=== PATIENT | male | born 1950 | race African-American/Black ===

== ENCOUNTER → 2016-10-10 | Outpatient (CLI) | payer MEDICARE, OTHER ==
[~2016-10-10] MED LIST: ALLEGRA PO; AMLODIPINE BES2.5 MG PO; EXCEDRIN MIGRAI1 TA2 PO; INDERAL LA160 MG PO; NEXIUM PO; PATANASE30.5 GM; QNASL8.7 GM; TIZANIDINE HCL6 MG PO
[2016-10-13 15:51] LABS: CALCIUM (PTHINTACT) 9.6 mg/dL (8.6-10.3)
== END | disposition home or self-care (01) ==
LOC: SLAB 07:49
PROVIDERS: Specialist
DX: D35.1 Benign neoplasm of parathyroid gland (principal); E55.9 Vitamin D deficiency, unspecified
CPT/HCPCS: 36415; 82306; 82310; 83970

== ENCOUNTER → 2016-10-10 | Outpatient (CLI) | payer MEDICARE, OTHER ==
[2016-10-10 08:39] LABS: BASOPHIL% 0.6 % (0-2.5); DIFF IND NO; EOSINOPHIL# 0.3 X10e3 (0-0.7); HEMATOCRIT 41.2 % (38.0-50.0); LYMPHOCYTE# 1.9 X10e3 (1.0-3.5); LYMPHOCYTE% 36.7 % (17.0-45.0); MEAN CELL VOLUME 88.8 FL (83-96); MEAN CORPUSCULAR HGB CONC 31.6 g/dL (30-36); MEAN PLATELET VOLUME 9.8 FL (6.5-11.5); MONOCYTE# 0.5 X10e3 (0-1.0); NEUTROPHIL# 2.5 X10e3 (1.5-7.1); NEUTROPHIL% 47.7 % (40-75); PLATELET COUNT 193 X10e3 (140-420); RED BLOOD COUNT 4.64 X10e (3.90-5.60); RED CELL DISTRIBUTION WIDTH 13.7 % (11.0-15.5); WHITE BLOOD COUNT 5.3 X10e3 (4.0-10.5)
[2016-10-13 07:24] LABS: IMMUNOGLOBULIN A 157 mg/dL (81-463); IMMUNOGLOBULIN E 311 kU/L (<=114); IMMUNOGLOBULIN G 1146 mg/dL (694-1618); IMMUNOGLOBULIN M 228 mg/dL (48-271)
== END | disposition home or self-care (01) ==
LOC: SLAB 07:52
PROVIDERS: Allergy & Immunology
DX: J30.1 Allergic rhinitis due to pollen (principal); H10.45 Other chronic allergic conjunctivitis; J01.00 Acute maxillary sinusitis, unspecified; J32.9 Chronic sinusitis, unspecified
CPT/HCPCS: 36415; 82784; 82785; 85025; 86162; 86609; 86774

== ENCOUNTER → 2016-12-13 | Outpatient (CLI) | payer MEDICARE, OTHER | END | disposition home or self-care (01) | LOC: SLAB 11:33 | DX: H10.45 Other chronic allergic conjunctivitis (principal); J01.00 Acute maxillary sinusitis, unspecified; J32.9 Chronic sinusitis, unspecified | CPT/HCPCS: 36415; 86609 ==